=== PATIENT | female | born 1995 | race Caucasian/White ===

== ENCOUNTER 2023-06-22 05:43 | Emergency (ER) | payer OTHER ==
[~2023-06-22] VITALS: Ht 157.5 cm; Wt 55.3 kg
[2023-06-22 05:47] VITALS: BP 103/59; PULSE 69; RESP 16; TEMP 97.9; O2SAT 98
[2023-06-22] MEDS ORDERED: ACETAMINOPHEN 325 MG TAB PO ONE (06:40)
[2023-06-22 07:06] LABS: BASOPHILS % (AUTO) 0.6 % (0.0-2.0); EOSINOPHILS # (AUTO) 0.1 K/uL (0-0.4); HEMOGLOBIN 13.5 g/dL (12.0-16.0); LYMPHOCYTES # (AUTO) 1.9 K/uL (2.5-16.5); LYMPHOCYTES % (AUTO) 29.4 % (20.5-51.1); MEAN CORPUSCULAR HEMOGLOBIN 30 pg (27-31); MEAN CORPUSCULAR HGB CONC 34 g/dL (33-37); MEAN CORPUSCULAR VOLUME 88.9 fL (80-94); MONOCYTES # (AUTO) 0.5 K/uL (0.8-1.0); MONOCYTES % (AUTO) 7.1 % (1.7-9.3); NEUTROPHILS % (AUTO) 61.9 % (42.2-75.2); PLATELET COUNT (AUTO) 251 K/uL (140-450); RED CELL DISTRIBUTION WIDTH 13.8 % (11.6-13.7); WHITE BLOOD COUNT (AUTO) 6.5 K/uL (4.8-10.8)
[2023-06-22 07:13] LABS: ANION GAP 12.7 (8-16); CALCIUM 8.7 mg/dL (8.5-10.1); CARBON DIOXIDE 26.2 mmol/L (21-32); CREATININE 0.6 mg/dL (0.6-1.3); POTASSIUM 3.9 mmol/L (3.5-5.1)
[2023-06-22 08:03] LABS: APPEARANCE,URINE CLEAR (CLEAR); BILIRUBIN,URINE NEGATIVE (NEGATIVE); BLOOD, URINE NEGATIVE (NEGATIVE); COLOR,URINE YELLOW (YELLOW); LEUKOCYTE ESTERASE ,URINE 1+ (NEGATIVE); NITRITE, URINE NEGATIVE (NEGATIVE); PROTEIN,URINE NEGATIVE (NEGATIVE); UGLUCOSE NEGATIVE (NEGATIVE); UROBILINOGEN,URINE 0.2 EU/dL (0.2 - 1)
[2023-06-22 08:14] LABS: BACTERIA,URINE 10-30 (MOD) /HPF (None Seen); RBC,URINE 0-5 /HPF (0-5); SQUAMOUS EPITHELIAL CELL,UR 4-10 (MOD) /LPF (0-3 (FEW))
[2023-06-22] MEDS ORDERED: CEPH-588 PO (09:02)
[2023-06-22 09:14] VITALS: BP 103/59; PULSE 69; RESP 16; TEMP 97.9; O2SAT 98
== END 2023-06-22 09:14 | disposition home or self-care (01) ==
LOC: MED 05:43
DX: O23.41 Unspecified infection of urinary tract in pregnancy, first trimester (principal); Z3A.01 Less than 8 weeks gestation of pregnancy; Z79.899 Other long term (current) drug therapy
CPT/HCPCS: 36415; 76817; 80048; 81001; 81025; 84702; 85025; 86900; 86901; 87086; 99284; Q0092

== ENCOUNTER 2023-07-23 09:41 | Emergency (ER) | payer OTHER, MEDICAID ==
[~2023-07-23] VITALS: Ht 157.5 cm; Wt 51.7 kg
[~2023-07-23 09:41] MED LIST: CEPH-588 PO
[2023-07-23 09:57] VITALS: BP 126/80; PULSE 95; RESP 16; TEMP 97.9; O2SAT 98
[2023-07-23] MEDS: NACL 0.9% 1,000 ML IV SCH (11:04)
[2023-07-23] MEDS: ONDANSETRON 4 MG/2 ML VIAL IVP ONE (11:08)
[2023-07-23 11:23] LABS: BASOPHILS % (AUTO) 0.4 % (0.0-2.0); EOSINOPHILS % (AUTO) 0.3 % (0.0-4.0); HEMATOCRIT 41.7 % (36-48); HEMOGLOBIN 14.7 g/dL (12.0-16.0); LYMPHOCYTES # (AUTO) 1.6 K/uL (2.5-16.5); LYMPHOCYTES % (AUTO) 21.6 % (20.5-51.1); MEAN CORPUSCULAR HEMOGLOBIN 31 pg (27-31); MEAN CORPUSCULAR HGB CONC 35 g/dL (33-37); MEAN CORPUSCULAR VOLUME 87.4 fL (80-94); MONOCYTES # (AUTO) 0.5 K/uL (0.8-1.0); MONOCYTES % (AUTO) 6.3 % (1.7-9.3); NEUTROPHILS # (AUTO) 5.1 K/uL (1.8-7.7); NEUTROPHILS % (AUTO) 71.4 % (42.2-75.2); PLATELET COUNT (AUTO) 270 K/uL (140-450); RED BLOOD CELL COUNT(AUTO) 4.77 MIL/uL (4.20-5.40); RED CELL DISTRIBUTION WIDTH 13.8 % (11.6-13.7); WHITE BLOOD COUNT (AUTO) 7.2 K/uL (4.8-10.8)
[2023-07-23 11:35] LABS: BILIRUBIN,URINE NEGATIVE (NEGATIVE); LEUKOCYTE ESTERASE ,URINE 2+ (NEGATIVE); PROTEIN,URINE 1+ (NEGATIVE); UGLUCOSE NEGATIVE (NEGATIVE)
[2023-07-23 11:42] LABS: COLOR,URINE YELLOW (YELLOW)
[2023-07-23 11:46] LABS: ANION GAP 13.3 (8-16); APPEARANCE,URINE HAZY (CLEAR); CALCIUM 9.4 mg/dL (8.5-10.1); CARBON DIOXIDE 27.5 mmol/L (21-32); CREATININE 0.7 mg/dL (0.6-1.3); POTASSIUM 3.8 mmol/L (3.5-5.1)
[2023-07-23 11:48] LABS: BACTERIA,URINE 1+ /HPF (None Seen); NITRITE, URINE POSITIVE (NEGATIVE)
[2023-07-23 11:52] LABS: ALBUMIN 3.3 g/dL (3.4-5.0); BILIRUBIN,DIRECT 0.2 mg/dL (0.0-0.3); BLOOD, URINE NEGATIVE (NEGATIVE); RBC,URINE 0-5 /HPF (0-5); SQUAMOUS EPITHELIAL CELL,UR 4-10 (MOD) /LPF (0-3 (FEW)); TOTAL BILIRUBIN 0.8 mg/dL (0.0-1.0); TOTAL PROTEIN, SERUM 8.8 g/dL (6.4-8.2)
[2023-07-23] MEDS: NACL 0.9% 1,000 ML IV ONE (12:29)
[2023-07-23] MEDS: PROCHLORPERAZINE 10 MG/2 ML VIAL IVP ONE (12:29)
[2023-07-23] MEDS ORDERED: DOXY1TCP PO (12:50)
[2023-07-23 13:17] VITALS: BP 97/56; PULSE 77; RESP 19; O2SAT 100
== END 2023-07-23 13:45 | disposition home or self-care (01) ==
LOC: MED 09:41
DX: O21.0 Mild hyperemesis gravidarum (principal); O26.891 Other specified pregnancy related conditions, first trimester; Z3A.09 9 weeks gestation of pregnancy; Z79.899 Other long term (current) drug therapy
CPT/HCPCS: 36415; 80048; 80076; 81001; 81025; 85025; 87086; 96361; 96374; 96375; 99284; J0780; J2405; J7030